=== PATIENT | female | born 1940 | race Caucasian/White ===

== ENCOUNTER → 2017-01-15 | Outpatient (CLI) | payer MEDICARE ==
[~2017-01-15] MED LIST: ASPIRIN325 MG PO; MOBIC15 MG PO; PRINIVIL20 MG PO; REFRESH TEARS15 ML EYEBOTH; TYLENOL PM EX-1 EACH PO; TYLENOL500 MG PO; ULTRAM50 MG PO
== END | disposition short-term general hospital (02) ==
LOC: CLORTH 10:17
DX: Z47.1 Aftercare following joint replacement surgery (principal); Z96.651 Presence of right artificial knee joint

== ENCOUNTER 2017-03-13 16:00 | Emergency (ER) | payer MEDICARE ==
[~2017-03-13] VITALS: Ht 162.6 cm; Wt 78.0 kg
[~2017-03-13 16:00] MED LIST changes: -TYLENOL PM EX-1 EACH PO
== END 2017-03-13 18:05 | disposition short-term general hospital (02) ==
LOC: ER 16:00
DX: S42.251A Displaced fracture of greater tuberosity of right humerus, initial encounter for closed fracture (principal); I10 Essential (primary) hypertension; E78.00 Pure hypercholesterolemia, unspecified; Z79.899 Other long term (current) drug therapy; Z90.49 Acquired absence of other specified parts of digestive tract; Z96.651 Presence of right artificial knee joint; W10.9XXA Fall (on) (from) unspecified stairs and steps, initial encounter
CPT/HCPCS: J8499

== ENCOUNTER → 2017-03-19 | Outpatient (CLI) | payer MEDICARE ==
[~2017-03-19] MED LIST changes: +TYLENOL PM EX-1 EACH PO
== END | disposition short-term general hospital (02) ==
LOC: CLORTH 10:44
DX: S42.291A Other displaced fracture of upper end of right humerus, initial encounter for closed fracture (principal)

== ENCOUNTER 2017-04-08 08:18 | Emergency (ER) | payer MEDICARE ==
[~2017-04-08] VITALS: Ht 162.6 cm; Wt 75.3 kg
[~2017-04-08 08:18] MED LIST changes: -TYLENOL PM EX-1 EACH PO
[2017-04-08] MEDS ORDERED: TYLENOL PM EX-1 EACH PO (09:30)
[2017-04-08] MEDS ORDERED: ULTRAM50 MG PO (09:31)
[2017-04-08] MEDS ORDERED: ASPIRIN325 MG PO (10:56)
== END 2017-04-08 10:40 | disposition short-term general hospital (02) ==
LOC: ER 08:18
DX: R53.1 Weakness (principal); Z98.890 Other specified postprocedural states; Z79.899 Other long term (current) drug therapy; Z79.891 Long term (current) use of opiate analgesic; Z79.82 Long term (current) use of aspirin

== ENCOUNTER → 2017-04-16 | Outpatient (CLI) | payer MEDICARE ==
[~2017-04-16] MED LIST changes: +TYLENOL PM EX-1 EACH PO
== END | disposition short-term general hospital (02) ==
LOC: CLORTH 12:33
DX: Z47.1 Aftercare following joint replacement surgery (principal); S42.241D 4-part fracture of surgical neck of right humerus, subsequent encounter for fracture with routine healing; Z96.611 Presence of right artificial shoulder joint